=== PATIENT | male | born 1950 | race Caucasian/White ===

== ENCOUNTER → 2019-08-13 | Outpatient (CLI) | payer OTHER ==
[~2019-08-13] MED LIST: ACETAMINOPHEN-1 EAC1 PO; ALLOPURINOL 10100 M1 PO; ALLOPURINOL 10100 M2 PO; ASPIR 8181 MG PO; BYSTOLIC10 MG PO; BYSTOLIC20 MG PO; CALCIUM 500 +1 EAC5 PO; CARDIZEM CD 30300 M1 PO; CARDIZEM CD120 MG PO; CARDIZEM CD240 MG PO; CARDURA PO; CARDURA1 MG PO; CARVEDILOL12.5 MG PO; CEPHALEXIN 250250 M1 PO; CITRATE OF MAG296 ML PO; COLACE100 MG PO; COUMADIN 1MG TAB1 M1 PO; COUMADIN 3 MG TA3 MG PO; COUMADIN 5 MG TA5 M1 PO; DEMADEX100 MG PO; DOXAZOSIN; DOXYCYCLINE 10100 MG PO; ENALAPRIL MALEA20 MG PO; FLECAINIDE ACE100 MG PO; FLECAINIDE ACET50 M1 PO; FLEXERIL PO; FUROSEMIDE 20 M20 M1 PO; GABAPENTIN 100100 MG PO; INSULIN PUMP; MAGNESIUM OXID400 MG PO; MOBIC15 MG PO; MOBIC7.5 MG PO; MYFORTIC360 MG PO; NEURONTIN 300300 M1 PO; NORFLEX100 MG PO; NOVOLOG100 UNIT/1; PEPCID20 MG PO; PERCOCET 5-3251 EACH PO; PHENERGAN 25 MG25 M1 PO; PHENERGAN 25 MG25 MG PO; PRAVACHOL80 MG PO; PRAVASTATIN SOD10 MG PO; PROGRAF0.5 MG PO; PROMETHAZINE12.5 M2 RECTAL; PROTONIX40 M2 PO; REMERON15 MG PO; RESTORIL30 MG PO; TRAMADOL 50 MG50 MG PO; TUMS CHEWA500 MG/11 PO; TUMS PO; VOL-TAB RX TAB1 EACH PO; XARELTO10 MG PO; ZOLOFT25 MG PO; ZOLOFT50 MG PO
== END ==
LOC: CAT 13:00
DX: Z13.6 Encounter for screening for cardiovascular disorders (principal); E78.00 Pure hypercholesterolemia, unspecified; I25.10 Atherosclerotic heart disease of native coronary artery without angina pectoris